=== PATIENT | male | born 1970 | race Caucasian/White ===

== ENCOUNTER 2020-07-30 10:27 | Day surgery (SDC) | payer OTHER, SELFPAY ==
[2020-07-25 10:53] VITALS: BMI 31.0
--- NOTE | 2020-07-27 09:52 | P.CONAN_ITS ---
HPI - Anesthesia Eval Consult details Narrative: 50yo M for Colonoscopy [facility], [facility] Past Medical History Medical History (Updated 07/25/20 @ 10:43 by Samina Schultz) Barretts esophagus GERD (gastroesophageal reflux disease) Hiatal hernia Surgical History Surgical History (Updated 07/25/20 @ 10:51 by Samina Schultz) History of cholecystectomy History of foot surgery Hx of esophagogastroduodenoscopy Hx of lumbar discectomy Social History Social History Smoking Status: Never smoker Meds Allergies Allergy/AdvReac Type Severity Reaction Status Date / Time No Known Allergies Allergy Unverified 07/25/20 10:32 [No Known Allergies*] Home Medications Medication Instructions Recorded Confirmed Type omeprazole magnesium [Prilosec OTC] 20 mg PO DAILY 07/25/20 07/25/20 History Exam Exam Date and Time: July 27, 2020 0952 Height,Weight and Vital Signs: Height 6 ft 2 in Weight 109.769 kg Assessment and Plan Assessment Anesthesia Assessment: Chart Reviewed
[2020-07-30 10:57] VITALS: BP 152/90; PULSE 94; RESP 18; TEMP 36.2; O2SAT 98
[2020-07-30] MEDS: Lactated Ringers 1,000 ML 100 ML IVCONT (11:13)
[2020-07-30 13:10] VITALS: BP 116/80; PULSE 81; RESP 16; TEMP 37.2; O2SAT 99
--- NOTE | 2020-07-30 13:15 | PM.OP ---
Brief Operative Note Date of Service: 07/30/20 Pre-op diagnosis: Screening Post-op diagnosis: other (Colon polyps, Internal hemorrhoids, Occasional sigmoid diverticuloosis) Procedure: Colonoscopy to cecum and TI with snare polypectomy, and biopsy and removal of polyp. Surgeon: Chandler Blanco Anesthesia: MAC Estimated blood loss (mL): 3.0 Pathology: other (A. Proximal ascending colon polyp B. Distal ascending colon polyp) Condition: stable Disposition: PACU
[2020-07-30 13:25] VITALS: BP 121/83; PULSE 71; RESP 18; O2SAT 100
--- NOTE | 2020-07-30 13:53 | OP_ITS ---
SURGEON: Chandler Blanco MD INDICATIONS: The patient presents for evaluation of colorectal cancer screening. Full consent has been obtained from him for this, including risks of bleeding and perforation. PREOPERATIVE DIAGNOSIS: Colorectal cancer screening. POSTOPERATIVE DIAGNOSIS: PROCEDURE PERFORMED: Colonoscopy to cecum and terminal ileum with snare polypectomy, and biopsy and removal of polyp. ESTIMATED BLOOD LOSS: COMPLICATIONS: ANESTHESIA: Monitored anesthesia care. ASSISTANTS: SPECIMENS: POSTOPERATIVE DIAGNOSES: Colorectal cancer screening, colon polyps, occasional sigmoid diverticulosis, small internal hemorrhoids. DESCRIPTION OF PROCEDURE: The patient was placed in the left lateral decubitus position. The digital rectal exam revealed no abnormalities. The Olympus video pediatric colonoscope was entered into the rectum and advanced easily to the cecum. Once in the cecum, I did identify normal-appearing cecal pouch with appendiceal orifice and a normal-appearing ileocecal valve. The terminal ileum was cannulated and appeared normal. The scope was withdrawn back in the colon. The entire cecum and ileocecal valve appeared normal. The scope was slowly withdrawn assessing all mucosal surfaces carefully. Preparation was excellent. In the proximal ascending colon, was an approximately 10 mm polyp, which was snared and recovered by suction. The polypectomy site appeared clean, without any sign of residual polyp nor bleeding. In the more distal ascending colon, was a flat approximately 5 mm grossly adenomatous appearing area of polypoid tissue, which was biopsied and completely removed with cold biopsy forceps in piecemeal fashion. I did not visualize any other polyps, colitis, nor angiodysplasia. There were occasional diverticula noted in the sigmoid colon. In the rectum, scope was retroflexed visualizing some small internal hemorrhoids, but no other pathology. The rectal mucosa appeared normal. The scope was straightened out and withdrawn from the patient. He tolerated the procedure well and was returned to the recovery area in stable condition. IMPRESSION: 1. Colon polyps, status post snare polypectomy, and biopsy and removal. 2. Occasional sigmoid diverticulosis. 3. Internal hemorrhoids. PLAN: The results of the biopsies will be checked. Assuming these are tubular adenoma, I would recommend a followup colonoscopy in 5 years for further surveillance. He was advised not to use any aspirin and NSAIDs for 1 week. I would recommend a repeat upper endoscopy at the same time as his next colonoscopy given the previous history of Hutchins's esophagus, although his most recent upper endoscopy in 2019 did not show any sign of that. This has been discussed with his . MD LAKSHMI Abdullahi/PANCHO / [id number]
== END 2020-07-30 14:02 | disposition home or self-care (01) ==
PROVIDERS: PCP Internal Medicine; Visit Provider Internal Medicine
PROC: 0DJD8ZZ Inspection of Lower Intestinal Tract, Via Natural or Artificial Opening Endoscopic (ICD-10-PCS; CPT 45378; principal; 2020-07-30 11:30)
DX: Z12.11 Encounter for screening for malignant neoplasm of colon (principal); D12.2 Benign neoplasm of ascending colon; K57.30 Diverticulosis of large intestine without perforation or abscess without bleeding; K64.8 Other hemorrhoids
CPT/HCPCS: 45385; 45380; 88305